=== PATIENT | female | born 1985 | race Caucasian/White ===

== ENCOUNTER 2023-09-10 13:48 | Emergency (ER) | payer BC, MEDICAID ==
[2023-09-10] MEDS ORDERED: Sodium Chloride 0.9% 10 ML Syringe FLUSH PRN (14:30)
[2023-09-10] MEDS ORDERED: Morphine 2 MG/ML SYRINGE IVPUSH ONE (14:31)
[2023-09-10] MEDS ORDERED: Sodium Chloride 0.9% 1,000 ML IV SCH ×2 (14:45→17:15)
[2023-09-10 15:17] LABS: BASOPHILS ABSOLUTE AUTO 0.1 x10-3/uL (0.0-0.1); BASOPHILS PERCENT AUTO 0.9 % (0.2-1.5); EOSINOPHILS ABSOLUTE AUTO 0.1 x10-3/uL (0.0-0.8); EOSINOPHILS PERCENT AUTO 1.5 % (0.6-8.1); HEMATOCRIT 24.5 % (34.2-48.2); HEMOGLOBIN 8.6 g/dL (11.4-15.5); LYMPHOCYTES ABSOLUTE AUTO 1.1 x10-3/uL (1.0-4.4); LYMPHOCYTES PERCENT AUTO 15.3 % (18.4-52.1); MEAN CORPUSCULAR HGB CONC 35.2 g/dL (31.9-34.8); MEAN CORPUSCULAR VOLUME 96.6 fL (76.7-100.5); MEAN PLATELET VOLUME 7.3 fL (7.1-12.4); MONOCYTES PERCENT AUTO 13.6 % (4.4-15.7); NEUTROPHILS ABSOLUTE AUTO 5.1 x10-3/uL (1.5-6.3); NEUTROPHILS PERCENT AUTO 68.7 % (30.8-76.2); PLATELET COUNT,PLT 90 x10(3)uL (151-488); RED BLOOD CELL COUNT 2.53 x10(6)uL (3.60-5.20); RED CELL DISTRIBUTION WIDTH 15.3 % (12.3-16.5); WHITE BLOOD CELL COUNT,WBC 7.4 x10-3/uL (3.0-10.3)
[2023-09-10 15:20] LABS: BLOOD UREA NITROGEN,BUN 30 mg/dL (7-18); BUN/CREATININE RATIO 27.3 (9-20); CALCIUM 8.9 mg/dL (8.6-10.2); CARBON DIOXIDE,CO2 20 mmol/L (21-32); CHLORIDE,CL 91 mmol/L (100-110); CREATININE 1.1 mg/dL (0.55-1.02); EST CRCL DRUG DOSING (CG) 57.92 mL/min; ESTIMATED GFR 66 mL/min (>60); GLUCOSE RANDOM 107 mg/dL (80-116); SODIUM,NA 122 mmol/L (135-145)
[2023-09-10] MEDS ORDERED: Morphine 2 MG/ML SYRINGE IM ONE (15:25)
[2023-09-10 15:26] LABS: A/G RATIO 0.7; ALANINE AMINOTRANSFERASE,ALT 55 U/L (12-36); ALBUMIN 2.3 g/dL (3.5-5.2); ALKALINE PHOSPHATASE 167 IU/L (56-112); AMYLASE 59 U/L (25-115); ASPARTATE AMNIOTRANSFERASE,AST 69 IU/L (5-25); BILIRUBIN TOTAL 12.9 mg/dL (0.1-1.3); PROTEIN TOTAL,TP 5.6 g/dL (6.0-8.0)
[2023-09-10 15:30] LABS: INR 1.72 (1.00-1.24); PROTHROMBIN TIME 17.4 sec (9.0-11.1); PTT,PARTIAL THROMBOPLSTIN TIME 35.4 SECONDS (24.4-33.2)
[2023-09-10] MEDS ORDERED: Acetaminophen/oxyCODONE 325-5 MG Tab PO STA (18:16)
[2023-09-10 18:17] LABS: AMMONIA, PLASMA 36
== END 2023-09-10 19:48 ==
LOC: FB.ED 13:48
DX: K80.20 Calculus of gallbladder without cholecystitis without obstruction (principal); K74.60 Unspecified cirrhosis of liver; D69.6 Thrombocytopenia, unspecified; R18.8 Other ascites; E80.6 Other disorders of bilirubin metabolism; N20.0 Calculus of kidney
CPT/HCPCS: 36415; 74176; 80053; 82140; 82150; 83690; 83735; 85025; 85610; 85730; 96360; 96372; 99285-25; A9270-GY; J2270; J7030

== ENCOUNTER 2023-09-24 09:21 | Emergency (ER) | payer MEDICAID ==
[2023-09-24] MEDS ORDERED: Ondansetron 4 MG Tab.DIS PO ONE (10:16)
== END 2023-09-24 10:55 | disposition home or self-care (01) ==
LOC: FB.ED 09:21
DX: S80.821A Blister (nonthermal), right lower leg, initial encounter (principal); S80.822A Blister (nonthermal), left lower leg, initial encounter; E87.1 Hypo-osmolality and hyponatremia; I95.89 Other hypotension; K70.30 Alcoholic cirrhosis of liver without ascites; Z79.899 Other long term (current) drug therapy
CPT/HCPCS: 99283; Q0162